=== PATIENT | female | born 1955 | race Caucasian/White ===

== ENCOUNTER → 2019-12-18 | Outpatient (CLI) | payer BC, MEDICARE ==
[2019-12-18 15:57] LABS: ABSOLUTE EOSINOPHILS # (AUTO) 0.1 10^3/uL (0.0-0.6); ABSOLUTE MONOCYTES (AUTO) 0.4 10^3/uL (0.1-1.4); ABSOLUTE NEUT (AUTO) 2.5 10^3/uL (1.7-8.2); EOSINOPHILS % (AUTO) 3.1 % (0-6); HEMATOCRIT 35.6 % (36.0-47.0); HEMOGLOBIN 11.9 g/dL (12.0-15.5); LYMPHOCYTES % (AUTO) 24.9 % (13-45); MEAN CORPUSCULAR HEMOGLOBIN 29.3 pg (27.0-33.4); MEAN CORPUSCULAR HGB CONC 33.5 g/dL (32.0-36.0); MEAN CORPUSCULAR VOLUME 88 fl (80-97); MONOCYTES % (AUTO) 10.1 % (3-13); PLATELET COUNT 222 10^3/uL (150-450); RED BLOOD COUNT 4.06 10^6/uL (3.72-5.28); SEGMENTED NEUTROPHILS % (AUTO) 60.9 % (42-78); TOTAL CELLS COUNTED % (AUTO) 100 %; WHITE BLOOD COUNT 4.1 10^3/uL (4.0-10.5)
[2019-12-18 16:35] LABS: ALBUMIN 3.9 g/dL (3.5-5.0); ALKALINE PHOSPHATASE 84 U/L (38-126); ANION GAP 7 (5-19); ASPARTATE AMINO TRANSFERASE 32 U/L (14-36); BILIRUBIN,TOTAL 0.5 mg/dL (0.2-1.3); BLOOD UREA NITROGEN 17 mg/dL (7-20); C-REACTIVE PROTEIN 15.2 mg/L (<10.0); CALCIUM 9.2 mg/dL (8.4-10.2); CARBON DIOXIDE 27 mmol/L (22-30); CHLORIDE 104 mmol/L (98-107); GLUCOSE 87 mg/dL (75-110); POTASSIUM 4.5 mmol/L (3.6-5.0); TOTAL PROTEIN 6.6 g/dL (6.3-8.2)
[2019-12-18 16:44] LABS: ERYTHROCYTE SEDIMENTATION RATE 22 mm/hr (0-30)
== END ==
LOC: WC 15:01
PROVIDERS: ATTEND Nurse Practitioner Family
DX: L97.922 Non-pressure chronic ulcer of unspecified part of left lower leg with fat layer exposed (principal)
CPT/HCPCS: 36415; 80053; 85025; 85652; 86140

== ENCOUNTER → 2020-01-02 | Outpatient (CLI) | payer BC, MEDICARE ==
--- NOTE | 2020-01-03 12:12 | XCELERA REPORT ---
[address] [address] Lower Extremity Arterial Evaluation Name: STEPHANIE SALGUERO Age: 64 yrs Gender: Female : 1955 Patient Status: Outpatient Patient Location: Study Date: 01/02/2020 02:46 PM Procedure: A color flow and duplex scan of the lower extremity arteries was performed bilaterally with velocity and waveform anaylsis. Ankle brachial indicies performed. Reason For Study: LT CALF ULCER Ordering Physician: FELICITAS KOHLI Performed By: Claudia Hernandez Measurements and Calculations Right Left SALESPERSON NEW CARS PSV 133.4 133.3 cm/sec Prox PFA PSV 62.5 -62.9 cm/sec Prox Pop A PSV 82.9 77.1 cm/sec Dist Pop A PSV -56.9 -73.8 cm/sec Prox OMAR PSV 93.0 100.4 cm/sec Dist OMAR PSV 93.9 88.9 cm/sec Prox CERTIFIED PHLEBOTOMIST PSV 54.6 76.4 cm/sec Dist CERTIFIED PHLEBOTOMIST PSV 82.5 113.1 cm/sec Prox Dylan A -34.7 cm/sec PSV Dist Dylan A 34.8 cm/sec PSV Martín Pedis PSV -94.3 -87.4 cm/sec Right Side Arterial Evaluation Normal velocity and triphasic waveforms noted from the Common Femoral artery to the infrageniculate vessels . . Ankle Brachial index 1.0. Left Side Arterial Evaluation Normal velocity and triphasic waveforms noted from the Common Femoral artery to the infrageniculate vessels . . Ankle Brachial index 1.16. Interpretation Summary No hemodynamically significant lesions in the bilateral lower extremities, on duplex imaging, at rest. RAJANI's are normal indicating no significant arterial obstructive disease. : FELICITAS KOHLI > Ryan Lynch
== END ==
LOC: SP 14:11
PROVIDERS: ATTEND Nurse Practitioner Family
DX: L97.922 Non-pressure chronic ulcer of unspecified part of left lower leg with fat layer exposed (principal)
CPT/HCPCS: 93922; 93925